=== PATIENT | male | born 1990 | race Caucasian/White ===

== ENCOUNTER 2023-08-19 23:29 | Emergency (ER) | payer OTHER ==
[~2023-08-19] VITALS: Ht 175.3 cm; Wt 86.2 kg
[2023-08-19 23:44] VITALS: BP_SYST 120; PULSE 63; RESP 16; TEMP 98.1; O2SAT 98
[2023-08-20] MEDS: KETOROLAC TROMETHAMINE 60 MG/2 ML VIAL IM ONE (00:48)
[2023-08-20] MEDS ORDERED: NAPR-1172 PO (01:44)
[2023-08-20 01:53] VITALS: BP_SYST 104; PULSE 63; RESP 16; TEMP 97.7; O2SAT 95
== END 2023-08-20 01:53 | disposition home or self-care (01) ==
LOC: SED 23:29
DX: S43.401A Unspecified sprain of right shoulder joint, initial encounter (principal); S20.211A Contusion of right front wall of thorax, initial encounter; V49.9XXA Car occupant (driver) (passenger) injured in unspecified traffic accident, initial encounter; Y93.89 Activity, other specified; Y92.89 Other specified places as the place of occurrence of the external cause; Y99.8 Other external cause status
CPT/HCPCS: 99284; 71100; 73030; 96372; J1885